=== PATIENT | male | born 1980 | race Caucasian/White ===

== ENCOUNTER 2017-04-28 23:27 | Emergency (ER) | payer SELFPAY ==
[2017-04-29 00:06] LABS: HEMOGLOBIN 13.8 gm/dl (14.0-17.5); RED BLOOD COUNT 4.42 M/UL (4.20-5.50); WHITE BLOOD COUNT 5.6 K/UL (4.5-11.0)
[2017-04-29 00:26] LABS: BUN/CREATININE RATIO 11 (0-10)
== END 2017-04-29 04:24 | disposition home or self-care (01) ==
LOC: ER1 23:27
PROVIDERS: Emergency Medicine
DX: R10.30 Lower abdominal pain, unspecified (principal); F17.200 Nicotine dependence, unspecified, uncomplicated
CPT/HCPCS: 36415; 71010; 76870; 80053; 81001; 82550; 82553; 83605; 83690; 83874; 84443; 84484; 85025; 85379; 87040; 93005; 96374; 99284; J2060